=== PATIENT | male | born 1990 | race Caucasian/White ===

== ENCOUNTER → 2018-01-05 | Outpatient (CLI) | payer OTHER ==
[~2018-01-05] MED LIST: NUGENIX PO
--- NOTE | 2018-01-05 15:33 | DIAGNOSTIC IMAGING REPORT ---
THYROID AND NECK ULTRASOUND CLINICAL HISTORY: Enlarged right cervical lymph nodes. COMPARISON STUDY: None. TECHNIQUE: Sonography of the thyroid gland and neck at site of palpable abnormality was performed. FINDINGS: Sonography of the right neck at site of palpable abnormality demonstrated a large heterogeneous 5.5 x 3.1 x 4.3 cm lobulated mixed echogenicity mass which contains color flow. This is within the right level 2. Note was also made of multiple enlarged right-sided cervical lymph nodes which have abnormal morphology. Several these contain calcifications. The right thyroid lobe measures 4.7 x 2.5 x 2.3 cm and the left lobe measures 5.2 x 1.3 x 1.5 cm. The right thyroid lobe is heterogeneous and may contain calcifications. The margins of the right thyroid lobe are difficult to evaluate appear ill-defined. IMPRESSION: 1. 5.5 x 3.1 x 4.3 cm lobulated right level 2 cervical mass which reflects the palpable abnormality. Pathologic lymphadenopathy is favored however a primary neck mass could appear similar. Multiple enlarged right-sided cervical lymph nodes which have an abnormal morphology, several of which are calcified. This is suggestive of a neoplastic process and raise the possibility of metastatic disease such as metastatic thyroid carcinoma. 2. Marked heterogeneity of the right thyroid lobe. Differentiation between thyroid gland and thyroid nodule is difficult on this exam however the findings suggest a suspicious right lobe thyroid nodule which could account for the cervical lymphadenopathy. Ultrasound-guided fine needle aspiration of the right thyroid lobe and the cervical lymphadenopathy could be performed. Electronically signed by: Donald Appiah M.D. 01/05/2018 3:31 PM Dictated Date/Time: 01/05/2018 3:25 PM
== END | disposition home or self-care (01) ==
LOC: C.ULTRBC 14:59
PROVIDERS: ATTEND Nurse Practitioner Family
DX: R59.0 Localized enlarged lymph nodes (principal); R22.1 Localized swelling, mass and lump, neck

== ENCOUNTER → 2018-01-15 | Outpatient (CLI) | payer OTHER ==
[~2018-01-15] MED LIST changes: +OPTIRAY 320 IV PRN
--- NOTE | 2018-01-15 08:35 | DIAGNOSTIC IMAGING REPORT ---
CT NECK WITH INTRAVENOUS CONTRAST HISTORY: Cervical lymphadenopathy. Follow-up. Thyroid cancer. TECHNIQUE: Multiaxial CT images of the neck were performed following the use of intravenous contrast. COMPARISON STUDY: None. FINDINGS: The visualized brain parenchyma and orbits are unremarkable. The pterygopalatine fossa are well-maintained. The parotid and submandibular glands enhance normally. Slight left deviation of the lower hypopharynx. No airway compromise. The visualized lung apices are clear. No suspicious lytic or blastic osseous lesions. Mild mucosal thickening within the floor the right maxillary sinus. The mastoid air cells are clear. The epiglottis and prevertebral soft tissues are normal in thickness. The major cervical vessels enhance normally. The left thyroid lobe enhances normally. There is a heterogeneous enhancing right thyroid lobe containing a few calcifications and likely a few nodules. Multiple hyperenhancing superior mediastinal and right cervical lymph nodes which are enlarged. These have a similar appearance to the right thyroid lobe and therefore highly suspicious for metastatic thyroid cancer. Dominant right cervical lymph node at the patient's palpable abnormality measures 4.4 x 3.6 cm. IMPRESSION: 1. Mildly enlarged and heterogeneous right thyroid lobe in comparison to the left. This likely contains a few nodules. There are multiple similar-appearing enlarged and hyperenhancing lymph nodes within the right side of the neck and superior mediastinum. Therefore, these findings are highly suspicious for metastatic thyroid cancer. 2. Slight left deviation of the lower hypopharynx due to the cervical lymphadenopathy and enlarged right thyroid lobe. However, there is no airway compromise at this time. Electronically signed by: Dipesh Pollard M.D. 01/15/2018 8:34 AM Dictated Date/Time: 01/15/2018 8:27 AM
== END | disposition home or self-care (01) ==
LOC: C.CTS 08:01
PROVIDERS: ATTEND Student in an Organized Health Care Education/Training Program
DX: R59.0 Localized enlarged lymph nodes (principal); R93.8 Abnormal findings on diagnostic imaging of other specified body structures